=== PATIENT | male | born 1985 | race African-American/Black ===

== ENCOUNTER 2019-05-01 18:24 | Emergency (ER) | payer SELFPAY ==
[~2019-05-01] VITALS: Ht 190.5 cm; Wt 75.0 kg
[2019-05-01] MEDS ORDERED: HYDROCODONE/ACETAMINOPHEN 5/325MG TABLET PO ONE (21:30)
[2019-05-01 22:06] VITALS: BP 121/71
== END 2019-05-01 22:09 | disposition home or self-care (01) ==
LOC: ER 18:24
DX: L02.811 Cutaneous abscess of head [any part, except face] (principal); F12.10 Cannabis abuse, uncomplicated
CPT/HCPCS: 10060; 99283; Z7610